=== PATIENT | male | born 1950 | race Caucasian/White ===

== ENCOUNTER 2019-08-27 12:01 | Outpatient (CLI) | payer MEDICARE, SELFPAY ==
--- NOTE | ~2019-08-27 | US_ITS ---
EXAMINATION: US soft tissue LE LT DATE: 08/27/2019 12:44 INDICATION: Left Greco's cyst. Left lower limb pain. TECHNIQUE: Multiple grayscale and Doppler ultrasound images of the left lower limb were obtained. COMPARISON: None FINDINGS: There is a 6.0 x 1.8 x 4.2 cm Greco's cyst in the left popliteal fossa. IMPRESSION: 1. Large left-sided Greco's cyst. Reviewed, dictated and finalized at location A. N SYSTEM OPERATOR
--- NOTE | ~2019-08-27 | US_ITS ---
EXAMINATION: US venous doppler [facility] DATE: 08/27/2019 12:45 INDICATION: Left lower limb pain. TECHNIQUE: Grayscale ultrasound images without and with compression and Doppler ultrasound images of the left lower extremity veins were obtained. COMPARISON: None. FINDINGS: The visualized portions of left common femoral vein, profunda (deep) femoral vein, femoral vein, popl iteal vein, peroneal veins, posterior tibial veins, and greater saphenous vein outflow are patent. IMPRESSION: 1. No deep venous thrombosis. Reviewed, dictated and finalized at location A. ENT FINANCE ADVISOR
== END 2019-08-27 12:02 | disposition home or self-care (01) ==
LOC: ANHIMG 12:09
PROVIDERS: PCP Internal Medicine; Visit Provider Internal Medicine
DX: M79.662 Pain in left lower leg (principal); M71.22 Synovial cyst of popliteal space [Baker], left knee
CPT/HCPCS: 76882; 93971

== ENCOUNTER 2019-10-20 16:14 | Emergency (ER) | payer MEDICARE, SELFPAY ==
--- NOTE | ~2019-10-20 | CT_ITS ---
EXAMINATION: CT abdomen pelvis w con EXAM DATE: 10/20/2019 17:50 INDICATION: Abdominal pain. TECHNIQUE: Spiral CT of the abdomen and pelvis was performed following intravenous injection of 100 m L Omnipaque 350. Axial, coronal and sagittal images were reviewed. The dose-length product (DLP) fo r this examination was 1044.98 mGy-cm. The exposure was tailored according to patient size (auto mA exposure control), and iterative reconstruction (ASIR) was used as additional dose reduction techniqu e. There is no prior study for comparison. FINDINGS: There is a hypodensity in the left liver lobe measuring 3.7 cm consistent with a cyst. The spleen, pancreas, and adrenal glands are unremarkable. There are gallstones within an otherwise unr emarkable gallbladder. No evidence of obstructive biliary disease. Portal and splenic veins are pat ent. There is a left renal cyst measuring 2.3 cm. Kidneys enhance symmetrically. There is no hydrone phrosis. There is mild prostatomegaly. The bladder is unremarkable. There is no retroperitoneal or pelvic lymphadenopathy. There is mild scattered arteriosclerotic disease. Small left inguinal fat- containing hernia. Congenitally short appendix, or surgical stump unremarkable. There is mild scattered colonic divertic ulosis. There is no adjacent inflammatory change to suggest diverticulitis. The stomach and small yang wel are unremarkable. There is expected amount of colonic stool. No free intraperitoneal gas. Th e heart is normal in size. There are no pericardial or pleural effusions. The lung bases are unrema rkable. There are no osteoblastic or osteolytic lesions identified. There is total right hip arthrop lasty. IMPRESSION: 1. No acute intra-abdominal findings. 2. Mild colonic diverticulosis. 3. Small left inguinal hernia. 4. Cholelithiasis. Reviewed, dictated and finalized at location A.
[2019-10-20 16:32] VITALS: BP 120/76; PULSE 69; RESP 12; TEMP 36.4; O2SAT 100
--- NOTE | 2019-10-20 16:38 | ECG_ITS ---
Measurements Intervals [place] Rate: 66 P: 55 ID: [id number] QRS: 1 QRSD: 90 T: 23 QT: 387 QTc: 406 Interpretive Statements SINUS RHYTHM BORDERLINE R WAVE PROGRESSION, ANTERIOR LEADS BASELINE ARTIFACT- II, III, V6 BORDERLINE ECG Electronically Signed On 10-20-2019 18:14:03 CDT by Shin Lino D.O.
--- NOTE | 2019-10-20 16:47 | ED.ABDPAIN ---
HPI - Abdominal Pain General Chief Complaint: Abdominal Pain Stated Complaint: ABD PAIN Time Seen by Provider: 10/20/19 16:21 Source: patient History of Present Illness HPI narrative: Pt c/o RUQ pain, started today, 01/30, now resolved. Pt states he's been eating food for the past few days that might have caused it. MD elicited complaint: abdominal pain Pain Consistency: now resolved Quality: dull Radiation: epigastric Migration to: no migration Exacerbating factors: nothing Relieving factors: nothing Related Data Home Medications Medication Instructions Recorded Confirmed atorvastatin 40 mg tablet 40 mg PO DAILY 04/23/19 lansoprazole 15 mg capsule,delayed 15 mg PO DAILY 04/23/19 release sildenafil (pulm.hypertension) 20 20 mg PO TID 04/23/19 mg tablet Allergies Allergy/AdvReac Type Severity Reaction Status Date / Time No Known Allergies Allergy Verified 10/20/19 17:14 Review of Systems Review of Systems: All systems reviewed & are unremarkable except as noted in HPI and below Constitutional: Constitutional: Denies body ache(s), Denies chills, Denies excessive sweating, Denies fatigue, Denies fever(s), Denies headache(s), Denies lethargy, Denies malaise, Denies weakness and Denies weight loss Eyes: Eyes: Denies blurry vision, Denies change in vision and Denies loss of vision ENT: Denies dizziness, Denies ear discharge, Denies headache(s), Denies lip swelling, Denies epistaxis, Denies nasal congestion, Denies neck pain, Denies throat swelling and Denies tongue swelling Cardiovascular: Cardiovascular: Denies chest pain, Denies chest pain at rest, Denies chest pain with activity, Denies diaphoresis, Denies rapid heart rate, Denies edema, Denies irregular heart rhythm, Denies lightheadedness, Denies palpitations, Denies dyspnea and Denies dyspnea on exertion Respiratory: Respiratory: Denies chest congestion, Denies cough, Denies hemoptysis, Denies dyspnea and Denies dyspnea on exertion Gastrointestinal: Gastrointestinal: Denies melena, Denies hematochezia, Denies diarrhea, Denies vomiting and Denies hematemesis Musculoskeletal: Musculoskeletal: Denies abnormal gait, Denies deformity, Denies joint swelling, Denies limited range of motion, Denies neck pain and Denies numbness Neurologic: Denies Abnormal speech present, Denies abnormal gait, Denies confusion, Denies dizziness, Denies headache(s), Denies focal weakness, Denies loss of vision, Denies numbness, Denies Other visual disturbances, Denies Sensory deficit (Neuro) and Denies weakness Psychiatric: Psychiatric: Denies confusion, Denies depression, Denies auditory hallucinations, Denies homicidal ideation and Denies suicidal ideation Endocrine: Endocrine: Denies cold intolerance, Denies excessive sweating, Denies fatigue, Denies heat intolerance and Denies palpitations Hematologic/Lymphatic: Hematologic/Lymphatic: Denies easy bleeding and Denies easy bruising Allergic/Immunologic: Allergic/Immunologic: Denies lip swelling, Denies throat swelling and Denies tongue swelling PMF Past Medical History Medical History (Updated 10/20/19 @ 19:26 by Sandeep Bower MD) Abnormal EKG Bakers cyst Chronic low back pain Colon cancer screening Erectile dysfunction GERD (gastroesophageal reflux disease) Hyperlipidemia Left leg pain Left leg swelling On alf drug therapy Prostate cancer screening Surgical History Surgical History (Updated 04/28/19 @ 08:21 by Irma Cerda [facility]) History of total hip replacement History of total right knee replacement (TKR) Hx of spinal surgery Social History Social History Smoking status: Never smoker Alcohol intake: never Gender identity (if verbalized by the patient): Male Exam Const: General: cooperative, healthy appearing, comfortable, no acute distress, well developed, alert and awake; No confusion Orientation/consciousness: oriented to person, oriented to place, oriented to time, patient orie
[2019-10-20 16:51] LABS: Basophils Absolute Auto 0.1 K/mm3 (0.0-0.1); Basophils Percent Auto 0.7 % (0.2-1.2); Eosinophils Absolute Auto 0.1 K/mm3 (0-0.3); Eosinophils Percent Auto 0.7 % (0-4.4); Hematocrit 46.3 % (42.0-52.0); Hemoglobin 15.2 g/dL (14.0-18.0); Immature Granulocyte Absolute 0.06 K/mm3 (0.00-0.031); Immature Granulocyte Percent A 0.4 % (0-0.5); Lymphocytes Percent Auto 14.1 % (18.3-44.2); Mean Corpuscular HGB Conc 32.8 g/dl (32-36); Mean Corpuscular Volume 91.3 fl (80-100); Mean Platelet Volume 10.9 fl (7.4-10.4); Monocytes Absolute Auto 1.3 K/mm3 (0.1-0.6); Monocytes Percent Auto 8.5 % (2.6-8.5); Neutrophils Absolute Auto 11.3 K/mm3 (1.3-6.7); Neutrophils Percent Auto 75.6 % (45.5-73.1); Platelet Count Result 209 k/mm3 (150-375); Red Blood Count 5.07 M/mm3 (4.6-6.20); Red Cell Distribution Width 13.4 % (11.5-14.5); White Blood Count 14.9 K/mm3 (4.5-10.0)
[2019-10-20 16:56] LABS: Partial Thromboplastin Time 23.9 SECONDS (22.3-36.8); Prothrombin Time 12.4 Seconds (11.1-14.7)
[2019-10-20] MEDS: LACTATED RINGERS 1,000 ML 999 ML IV CONT (17:01)
[2019-10-20 17:19] LABS: Alanine Aminotransferase 29 U/L (4-50); Albumin Level 4.5 g/dL (3.5-5.1); Alkaline Phosphatase 94 U/L (38-126); Aspartate Amino Transferase 54 U/L (17-59); Bilirubin,Total 1.1 mg/dL (0.2-1.3); Blood Urea Nitrogen 26 mg/dL (9-20); Calcium 9.2 mg/dL (8.4-10.2); Carbon Dioxide 25 mmol/L (22-30); Chloride 106 mmol/L (98-107); Estimated CRCL calculation 78 ml/min; Estimated Glomerular Filt Rate > 60; Glucose 87 mg/dL (75-110); Lipase 112 U/L (23-300); Potassium 3.4 mmol/L (3.4-5.0); Sodium 139 mmol/L (137-145)
[2019-10-20 17:29] LABS: Troponin I < 0.012 ng/mL (0.000-0.034)
[2019-10-20 19:46] VITALS: BP 122/78; PULSE 78; RESP 20; O2SAT 99
== END 2019-10-20 19:49 | disposition home or self-care (01) ==
PROVIDERS: Emergency Provider Emergency Medicine; PCP Internal Medicine
DX: K80.20 Calculus of gallbladder without cholecystitis without obstruction (principal); K21.9 Gastro-esophageal reflux disease without esophagitis; E78.5 Hyperlipidemia, unspecified; Z96.649 Presence of unspecified artificial hip joint; Z96.659 Presence of unspecified artificial knee joint; K57.90 Diverticulosis of intestine, part unspecified, without perforation or abscess without bleeding; K40.90 Unilateral inguinal hernia, without obstruction or gangrene, not specified as recurrent
CPT/HCPCS: 36415; 74177; 80053; 83690; 84484; 85025; 85610; 85730; 93005; 96360; 99284; J7120; Q9967

== ENCOUNTER 2020-12-22 06:46 | Outpatient (CLI) | payer MEDICARE, SELFPAY ==
[2020-12-22 07:30] LABS: Basophils Absolute Auto 0.1 K/mm3 (0.0-0.1); Basophils Percent Auto 0.7 % (0.2-1.2); Eosinophils Absolute Auto 0.2 K/mm3 (0-0.3); Eosinophils Percent Auto 2.5 % (0-4.4); Hematocrit 44.2 % (42.0-52.0); Hemoglobin 15.1 g/dL (14.0-18.0); Immature Granulocyte Absolute 0.02 K/mm3 (0.00-0.031); Immature Granulocyte Percent A 0.3 % (0-0.5); Lymphocytes Absolute Auto 0.93 K/mm3 (0.9-3.2); Lymphocytes Percent Auto 13.6 % (18.3-44.2); Mean Corpuscular HGB Conc 34.2 g/dl (32-36); Mean Corpuscular Volume 90.8 fl (80-100); Mean Platelet Volume 10.2 fl (7.4-10.4); Monocytes Absolute Auto 0.7 K/mm3 (0.1-0.6); Monocytes Percent Auto 9.6 % (2.6-8.5); Neutrophils Percent Auto 73.3 % (45.5-73.1); Platelet Count Result 187 k/mm3 (150-375); Red Blood Count 4.87 M/mm3 (4.6-6.20); Red Cell Distribution Width 12.7 % (11.5-14.5); White Blood Count 6.9 K/mm3 (4.5-10.0)
[2020-12-22 07:44] LABS: Alanine Aminotransferase 20 U/L (4-50); Albumin Level 4.2 g/dL (3.5-5.1); Alkaline Phosphatase 76 U/L (38-126); Anion Gap 8 mmol/L (8-16); Aspartate Amino Transferase 29 U/L (17-59); Bilirubin,Total 1.2 mg/dL (0.2-1.3); Blood Urea Nitrogen 15 mg/dL (9-20); Calcium 9.3 mg/dL (8.4-10.2); Carbon Dioxide 25 mmol/L (22-30); Chloride 107 mmol/L (98-107); Cholesterol 186 mg/dL (0-200); Estimated Glomerular Filt Rate > 60; Glucose 100 mg/dL (75-110); HDL Direct 50 mg/dL; Potassium 4.2 mmol/L (3.4-5.0); Sodium 140 mmol/L (137-145); Triglycerides 99 mg/dL (<150)
[2020-12-22 07:55] LABS: LDL Cholesterol Direct 102 mg/dL
[2020-12-22 08:53] LABS: Free T4 Free Thyroxine 0.81 ng/mL (0.78-2.19)
[2020-12-22 09:05] LABS: Hemoglobin A1C 5.5 % (<5.7)
[2020-12-22 09:24] LABS: Prostate Specific Antigen 1.6 ng/mL (< OR = 4.0)
== END 2020-12-22 06:47 | disposition home or self-care (01) ==
PROVIDERS: PCP Internal Medicine; Visit Provider Internal Medicine
DX: E78.2 Mixed hyperlipidemia (principal); Z79.899 Other long term (current) drug therapy; Z12.5 Encounter for screening for malignant neoplasm of prostate
CPT/HCPCS: 36415; 80053; 80061; 83036; 83090; 84153; 84439; 84443; 85025; G0103

== ENCOUNTER 2021-02-16 00:22 | Day surgery (SDC) | payer MEDICARE, SELFPAY ==
[2021-02-07 14:46] VITALS: BMI 27.5
[2021-02-16 06:27] VITALS: BP 147/82; PULSE 79; RESP 16; TEMP 36.1; O2SAT 98; BMI 27.3
[2021-02-16] MEDS: LACTATED RINGERS 1,000 ML 150 ML IV CONT (06:48)
--- NOTE | 2021-02-16 06:55 | PM.HPGS ---
History of Present Illness History of Present Illness Consent: Risks, benefits, and alternatives have been discussed and questions answered. Patient agrees to proceed with procedure. Chief complaint: hx of colon polyps, family hx of colon ca Narrative: Felice Parish is a 70 year old male Here for colon cancer screening. She has family history of colon cancer in his mother and he herself had 4 polyps removed about 3 years ago. Review of Systems Review of Systems: All systems reviewed & are unremarkable except as noted in HPI and below PMFSH Past Medical History Medical History Abnormal EKG Anxiety Bakers cyst BMI 28.0-28.9,adult Chronic low back pain Colon cancer screening Erectile dysfunction Family history of colon cancer GERD (gastroesophageal reflux disease) History of colon polyps Hyperlipidemia Left leg pain Left leg swelling On penitentiary drug therapy Personal history of COVID-19 Prostate cancer screening RUQ abdominal pain Vitamin D deficiency Surgical History Surgical History History of total hip replacement History of total right knee replacement (TKR) Hx of spinal surgery Family History Family History Father Family history of premature coronary heart disease Mother Carcinoma of colon Social History Social History Smoking status: Never smoker Alcohol intake: current Drinks per week: 2 Substance use: never Living arrangements: with family Gender identity (if verbalized by the patient): Male Spiritual care concerns: No Meds Home Medications and Allergies Home Medications Medication Instructions Recorded Confirmed Type lansoprazole 15 mg capsule,delayed 15 mg PO DAILY 04/23/19 02/16/21 History release alprazolam 1 mg tablet 1 mg PO TID PRN #60 tablet 11/24/20 02/16/21 Rx atorvastatin 80 mg tablet 80 mg PO DAILY #90 tablet 12/29/20 02/16/21 Rx naproxen sodium [Aleve] 220 mg PO DAILY PRN 02/07/21 02/16/21 History sildenafil (pulm.hypertension) 20 mg PO DAILY PRN 02/07/21 02/16/21 History Allergies Allergy/AdvReac Type Severity Reaction Status Date / Time No Known Allergies Allergy Verified 02/07/21 14:44 Vital Signs Vital Signs - 24 hr 02/16/21 06:27 Temperature 36.1 C L Pulse Rate 79 Respiratory Rate 16 Blood Pressure 147/82 H Pulse Oximetry 98 Exam Resp: Auscultation: clear to auscultation bilaterally Cardio: Rate: regular rate Rhythm: regular rhythm GI: GI Palp: Yes Soft to palpation and No Tenderness to palpation present (GI) Assessment and Plan Assessment and plan (1) Family history of colon cancer: Code(s): Z80.0 - Family history of malignant neoplasm of digestive organs Status: Acute Assessment and Plan: Colonoscopy with possible biopsy or polypectomy or cautery or injection of substances.
--- NOTE | 2021-02-16 07:13 | WPDANESEPPF ---
Anes - Initial Pre Proc Eval Procedure: Operation Date: 02/16/21 07:30 Proposed Procedures p Screening Colonoscopy - Anthony White MD Date/Time: 02/16/21 07:13 Surgeon: Anthony White MD Pre Op Diagnosis: hx of colon polyps, family hx of colon ca Patient Data Age: 70 Gender: M Height: 1.91 m Weight: 99 kg Last Vital Signs Temp 96.9 F L 02/16/21 06:27 Pulse 79 02/16/21 06:27 Resp 16 02/16/21 06:27 BP 147/82 H 02/16/21 06:27 Pulse Ox 98 02/16/21 06:27 Allergies Allergy/AdvReac Type Severity Reaction Status Date / Time No Known Allergies Allergy Verified 02/07/21 14:44 Home Medications Medication Instructions Recorded Confirmed Type lansoprazole 15 mg capsule,delayed 15 mg PO DAILY 04/23/19 02/16/21 History release alprazolam 1 mg tablet 1 mg PO TID PRN #60 tablet 11/24/20 02/16/21 Rx atorvastatin 80 mg tablet 80 mg PO DAILY #90 tablet 12/29/20 02/16/21 Rx naproxen sodium [Aleve] 220 mg PO DAILY PRN 02/07/21 02/16/21 History sildenafil (pulm.hypertension) 20 mg PO DAILY PRN 02/07/21 02/16/21 History Patient hx anesthesia problems: none Family hx anesthesia problems: none PMFSH Past Medical History Medical History Abnormal EKG Anxiety Bakers cyst BMI 28.0-28.9,adult Chronic low back pain Colon cancer screening Erectile dysfunction Family history of colon cancer GERD (gastroesophageal reflux disease) History of colon polyps Hyperlipidemia Left leg pain Left leg swelling On alf drug therapy Personal history of COVID-19 Prostate cancer screening RUQ abdominal pain Vitamin D deficiency Surgical History Surgical History History of total hip replacement History of total right knee replacement (TKR) Hx of spinal surgery Family History Family History Father Family history of premature coronary heart disease Mother Carcinoma of colon Social History Social History Smoking status: Never smoker Alcohol intake: current Drinks per week: 2 Substance use: never Living arrangements: with family Gender identity (if verbalized by the patient): Male Spiritual care concerns: No Anes - Eval Final PreProcedure Day of Procedure 02/16/21 07:13 Patient weight: overweight Lungs: clear to auscultation Airway: Mallampati scale class III Neurological: alert and oriented Last oral intake: >/= 8 hours ASA classification: II Emergent: no Anesthetic plan: proceed Anesthesia type and monitoring: general GIVS and standard monitoring Informed Consent: The patient's anesthetic plan and its attendant risks and benefits were discussed with the patient/family/POA. Questions were solicited and answers provided to the satisfaction of the patient/family/POA.
[2021-02-16 07:43] VITALS: BP 99/63; PULSE 81; RESP 20; O2SAT 95
[2021-02-16 07:53] VITALS: BP 116/61; PULSE 67; RESP 18; O2SAT 98
[2021-02-16 08:03] VITALS: BP 132/80; PULSE 64; RESP 21; O2SAT 98
== END 2021-02-16 08:20 | disposition home or self-care (01) ==
PROVIDERS: PCP Internal Medicine; Visit Provider Internal Medicine Gastroenterology
PROC: 0DJD8ZZ Inspection of Lower Intestinal Tract, Via Natural or Artificial Opening Endoscopic (ICD-10-PCS; CPT 45378; principal; 2021-02-16 07:30)
DX: Z12.11 Encounter for screening for malignant neoplasm of colon (principal); K57.30 Diverticulosis of large intestine without perforation or abscess without bleeding; F41.9 Anxiety disorder, unspecified; K21.9 Gastro-esophageal reflux disease without esophagitis; E78.5 Hyperlipidemia, unspecified; E55.9 Vitamin D deficiency, unspecified; Z86.16 Personal history of COVID-19; Z87.898 Personal history of other specified conditions
CPT/HCPCS: 45378; J2704; J7120

== ENCOUNTER 2021-10-24 16:38 | Outpatient (CLI) | payer MEDICARE, SELFPAY ==
[2021-10-24 16:58] LABS: Basophils Absolute Auto 0.1 K/mm3 (0.0-0.1); Basophils Percent Auto 0.8 % (0.2-1.2); Eosinophils Absolute Auto 0.3 K/mm3 (0-0.3); Eosinophils Percent Auto 3.4 % (0-4.4); Hematocrit 45.5 % (42.0-52.0); Hemoglobin 14.9 g/dL (14.0-18.0); Immature Granulocyte Absolute 0.02 K/mm3 (0.00-0.031); Immature Granulocyte Percent A 0.3 % (0-0.5); Lymphocytes Absolute Auto 1.37 K/mm3 (0.9-3.2); Lymphocytes Percent Auto 17.5 % (18.3-44.2); Mean Corpuscular HGB Conc 32.7 g/dl (32-36); Mean Corpuscular Hemoglobin 31.2 pg (26-34); Mean Corpuscular Volume 95.2 fl (80-100); Mean Platelet Volume 10.1 fl (7.4-10.4); Monocytes Absolute Auto 0.8 K/mm3 (0.1-0.6); Monocytes Percent Auto 10.3 % (2.6-8.5); Neutrophils Absolute Auto 5.3 K/mm3 (1.3-6.7); Neutrophils Percent Auto 67.7 % (45.5-73.1); Platelet Count Result 204 k/mm3 (150-375); Red Blood Count 4.78 M/mm3 (4.6-6.20); Red Cell Distribution Width 13.1 % (11.5-14.5); White Blood Count 7.8 K/mm3 (4.5-10.0)
[2021-10-24 17:10] LABS: Alanine Aminotransferase 25 U/L (4-50); Albumin Level 4.1 g/dL (3.5-5.1); Alkaline Phosphatase 88 U/L (38-126); Anion Gap 6 mmol/L (8-16); Aspartate Amino Transferase 32 U/L (17-59); Bilirubin,Total 0.7 mg/dL (0.2-1.3); Blood Urea Nitrogen 21 mg/dL (9-20); Calcium 9.1 mg/dL (8.4-10.2); Carbon Dioxide 27 mmol/L (22-30); Chloride 107 mmol/L (98-107); Cholesterol 187 mg/dL (0-200); Estimated Glomerular Filt Rate > 60; Glucose 98 mg/dL (65-110); HDL Direct 45 mg/dL; Potassium 3.9 mmol/L (3.4-5.0); Sodium 140 mmol/L (137-145); Triglycerides 231 mg/dL (<150)
[2021-10-24 17:16] LABS: Hemoglobin A1C 5.3 % (<5.7)
[2021-10-24 17:21] LABS: LDL Cholesterol Direct 99 mg/dL
[2021-10-24 18:15] LABS: Free T4 Free Thyroxine 0.89 ng/mL (0.78-2.19); Vitamin D 25 Hydroxy 36.8 ng/mL
== END 2021-10-24 16:39 | disposition home or self-care (01) ==
PROVIDERS: PCP Internal Medicine; Visit Provider Internal Medicine
DX: E78.2 Mixed hyperlipidemia (principal); Z79.899 Other long term (current) drug therapy; E55.9 Vitamin D deficiency, unspecified; K21.9 Gastro-esophageal reflux disease without esophagitis; Z96.649 Presence of unspecified artificial hip joint
CPT/HCPCS: 36415; 80053; 80061; 82248; 82306; 83036; 84439; 84443; 85025

== ENCOUNTER 2023-10-10 07:03 | Outpatient (CLI) | payer MEDICARE, SELFPAY ==
[2023-10-10 07:33] LABS: Basophils Absolute Auto 0.1 K/mm3 (0.0-0.1); Basophils Percent Auto 0.6 % (0.2-1.2); Eosinophils Absolute Auto 0.2 K/mm3 (0-0.3); Hematocrit 46.3 % (42.0-52.0); Hemoglobin 15.1 g/dL (14.0-18.0); Immature Granulocyte Absolute 0.04 K/mm3 (0.00-0.031); Immature Granulocyte Percent A 0.4 % (0-0.5); Lymphocytes Absolute Auto 1.16 K/mm3 (0.9-3.2); Lymphocytes Percent Auto 12.2 % (18.3-44.2); Mean Corpuscular HGB Conc 32.6 g/dl (32-36); Mean Corpuscular Hemoglobin 30.9 pg (26-34); Mean Corpuscular Volume 94.9 fl (80-100); Mean Platelet Volume 10.7 fl (7.4-10.4); Monocytes Absolute Auto 0.8 K/mm3 (0.1-0.6); Monocytes Percent Auto 8.5 % (2.6-8.5); Neutrophils Absolute Auto 7.3 K/mm3 (1.3-6.7); Neutrophils Percent Auto 76.3 % (45.5-73.1); Platelet Count Result 203 k/mm3 (150-375); Red Blood Count 4.88 M/mm3 (4.6-6.20); Red Cell Distribution Width 13.2 % (11.5-14.5); White Blood Count 9.5 K/mm3 (4.5-10.0)
[2023-10-10 07:44] LABS: Appearance Urine Clear (Clear); Bacteria Urine None Seen /hpf; Bilirubin Urine Negative (Negative); Blood Urine Negative (Negative); Color Urine Yellow (Yellow); Glucose Urine UA Negative (Negative); Ketones Urine Trace mg/dL (Negative); Leukocyte Esterase Ur 1+ LEU/UL (Negative); Nitrate Urine Negative (Negative); Non Pathogenic Casts 0-2; Protein Urine Negative (Negative); RBC Urine 0-2 /hpf (0-2); Specific Grav Ur 1.026 (1.001-1.035); Squamous Epithelial Cell Urine None Seen /hpf (Few); WBC Urine 21-50 /hpf (0-3)
[2023-10-10 07:44] LABS: Alanine Aminotransferase 32 U/L (6-50); Albumin Level 4.4 g/dL (3.5-5.1); Alkaline Phosphatase 101 U/L (38-126); Anion Gap 6 mmol/L (4-12); Aspartate Amino Transferase 30 U/L (17-59); Bilirubin,Total 1.1 mg/dL (0.2-1.3); Blood Urea Nitrogen 28 mg/dL (9-20); Calcium 9.4 mg/dL (8.4-10.2); Carbon Dioxide 26 mmol/L (22-30); Chloride 109 mmol/L (98-107); Cholesterol 199 mg/dL (0-200); Estimated Glomerular Filt Rate > 60; Glucose 116 mg/dL (65-110); HDL Direct 45 mg/dL; Hemoglobin A1C 5.5 % (<5.7); Potassium 4.3 mmol/L (3.4-5.0); Sodium 141 mmol/L (137-145); Triglycerides 210 mg/dL (<150)
[2023-10-10 07:54] LABS: LDL Cholesterol Direct 115 mg/dL
[2023-10-10 08:07] LABS: Free T4 Free Thyroxine 0.97 ng/mL (0.78-2.19); Vitamin D 25 Hydroxy 13.9 ng/mL
[2023-10-10 08:10] LABS: Add Urine Microscopic? YES
== END 2023-10-10 07:04 | disposition home or self-care (01) ==
LOC: ANHLAB 07:05
PROVIDERS: PCP Internal Medicine; Visit Provider Internal Medicine
DX: N52.9 Male erectile dysfunction, unspecified (principal); F41.9 Anxiety disorder, unspecified; Z79.899 Other long term (current) drug therapy; Z96.651 Presence of right artificial knee joint
CPT/HCPCS: 36415; 80053; 80061; 81001; 82306; 83036; 84439; 84443; 85025

== ENCOUNTER 2024-09-17 08:26 | Outpatient (CLI) | payer MEDICARE, SELFPAY ==
--- OUTSIDE RECORDS SUMMARY | 2024-09-17 08:41 | XMS_ITS | Referral Summary ---
Author Organization [facility] Address [address] [place] [id number] Care Team Providers Care Neurological Surgeon Name Role Phone Fred Hernandez MD Primary Care Provider [phone]- [phone] Encounters Date Type Department Care Team Description 09/08/2024 Results Follow-Up [facility] Dermatology [address] [place] [address] [address] [place] [address] Helga Ernst MD 09/03/2024 Orders Only [facility] [address] [place] [address] Helga Ernst MD Neoplasm of uncertain behavior of skin 09/03/2024 7:15 AM CDT Procedure visit [facility] [address] [facility] [address] [place] [address] Helga Ernst MD Neoplasm of uncertain behavior of skin (Primary Dx); BCC (basal cell carcinoma), face from Last 3 Months Allergies No known active allergies Medications ALPRAZolam (XANAX) 1 mg tablet Take by mouth 3 (three) times a day as needed 1 Active atorvastatin (LIPITOR) 80 mg tablet Take 80 mg by mouth daily 1 Active rosuvastatin (CRESTOR) 20 mg tablet rosuvastatin 20 mg tablet Active sildenafiL, pulm.hypertensi on, (REVATIO) 20 mg tablet Take 20 mg by mouth daily as needed 1 Active Active Problems Problem Noted Date Diagnosed Date 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 History of nonmelanoma skin cancer 01/01/2017 History of malignant melanoma 01/01/2017 Basal cell carcinoma (BCC) of face 09/30/2016 Social History Tobacco Use Types Packs/Day Years Used Date Smoking Tobacco: Never Smokeless Tobacco: Never Tobacco Cessation:Counseling Given: Not Answered Sex and Gender Information Value Date Recorded Sex Assigned at Not on file 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 Gender Identity Not on file Sexual Orientation Not on file Last Filed Vital Signs Vital Sign Reading Time Taken Comments Blood Pressure 141/90 09/03/2024 7:20 AM CDT Pulse 90 09/03/2024 7:20 AM CDT Temperature - - Respiratory Rate - - Oxygen Saturation 97% 09/03/2024 7:20 AM CDT Inhaled Oxygen Concentration - - Weight - - Height - - Body Mass Index - - Plan of Treatment Not on file Procedures Procedure Name Priority Date/Time Associated Diagnosis Comments SURGICAL PATHOLOGY Routine 09/03/2024 12 :00 AM CDT Neoplasm of uncertain behavior of skin from Last 3 Months Results * Surgical pathology (09/03/2024 12:00 AM CDT) Tissue (Skin, excision) 09/03/2024 09/03/2024 1:42 PM CDT [facility] - 09/08/2024 12:59 PM CDT EPIC results best viewed via link to PDF [facility] [address] [place] [address], [address], [place] [address] [email or web address] Note to Patients: This report may contain a detailed description of human tissue sent by a health care provider to the laboratory for pathologic evaluation. The content of this report is essential for diagnosis and may provide important critical findings. This information may be unfamiliar to patients to review without a medical professional present. It is advised that the patient review this report in the presence of a health care provider who can answer questions and explain the details. FINAL REPORT Patient Information: PATIENT NAME: FELICE PARISH DDS SEX: M : 1950 (Age: 74) Specimen Information: COLLECTED: 09/03/2024 RECEIVED: 09/03/2024 REPORTED: 09/08/2024 Submitting Physician Information: Liang Ernst M.D. Dermatology ([facility]), [address] [facility], [address] [place] [address], DERMATOPATHOLOGY REPORT RESULTS DIAGNOSIS: SKIN, RIGHT PROXIMAL FOREARM, EXCISION: - RESIDUAL ATYPICAL INTRAEPIDERMAL MELANOCYTIC PROLIFERATION - SCAR FROM A PREVIOUS PROCEDURE Note: The lesion extends to within a fraction of a millimeter of one lateral margin of the sections examined. The prior biopsy specimen ([id number]) that was processed and diagnosed at an outside laboratory may be reviewed at the request of the clinician. A MART-1 immunohistochemical stain was performed to assess the distribution of melanocytes in the lesion and confirms the histologic impression. ag/lac By this signature, I attest that the above diagnosis is based upon my personal examination of the slides(and/or other material indicated in the diagnosis). Idania Ley M.D. Report Electronically Reviewed and Signed Out By Idania Ley M.D. 09/08/2024 12:59:25 CLINICAL INFORMATION R/O MM SPECIMEN DATA MICROSCOPIC DESCRIPTION: There is a proliferation of atypical melanocytes arranged as single cells and nests within the epidermis at the dermo-epidermal junction adjacent to scar. (D48.5, L90.5) GROSS DESCRIPTION: Received in a formalin-containing bottle is an elliptical piece of pale hoang, finely scaling, hair-bearing skin and adipose tissue measuring 2.0 by 1.2 by 0.4 cm. An orienting notch is present and the suture is placed in the 12:00 position. The 12:00-6:00 surgical margin is inked black. The 6:00-12:00 surgical margin is inked blue. The specimen bears a centrally located, pink-hoang, scaly area measuring 0.9 by 0.9cm. The specimen is sectioned into 6 pieces and submitted in 4 cassettes. The tip with the notch is submitted in the first cassette. The opposite tip is submitted in the second cassette. The tips are tagged orange for orienting purposes. Due to shrinkage, measurements may be different than those at time of procedure. exr/mxf ICD-9 A; ZSD.1387 ZSD.135 Clerical Data A; 78414, [address]2447-WM The characteristics of special, immunohistochemical, and immunofluorescence stains and in-situ hybridization tests performed by the [facility] were deemed acceptable in ongoing quality measurement specialist measures and in compliance with regulations drawn from the Clinical Laboratory Improvement Act [id number] (CLIA '88). Control reactions for all stains performed were deemed adequate and appropriate by a pathologist prior to evaluation of patient tissue. Some diagnoses were rendered with the assistance of laboratory-developed tests utilizing analyte-specific reagents; the performance characteristic of these tests were determined by [facility] and are not cleared or approved by the [place] Food an Drug administration. Laboratory developed test may only be performed in a facility that is certified by the [facility] as a high-complexity laboratory under CLIA '88. These tests are used for clinical purposes and are not investigational. Helga Ernst MD LAB PATHOLOGY ORDERABLE S Final Result [facility] [address] [place] [address] from Last 3 Months Insurance MEDICARE [facility] MEDICARE SUPPLEMENT Care Teams Neurological Surgeon Relationship Specialty Start Date End Date Fred Hernandez MD [address] [place] [address] PCP - General 10/09/16
--- OUTSIDE RECORDS SUMMARY | 2024-09-17 08:41 | XMS_ITS | Encounter Summary ---
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 Name Role Phone Fred Hernandez MD Primary Care Provider [phone]- [phone] Encounter Details Date Type Department Care Team (Late st Contact Info) Description 09/08/2024 Results Follow-Up [facility] Dermatology [address] [place] [address] [address] [place] [id number] [place], Helga Aguillon MD [address] [place] [address] [address] [place] [address] Social History Tobacco Use Types Packs/Day Years Used Date Smoking Tobacco: Never Smokeless Tobacco: Never Sex and Gender Information Value Date Recorded Sex Assigned at Not on file 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
--- OUTSIDE RECORDS SUMMARY | 2024-09-17 08:41 | XMS_ITS | Clinical Summary ---
Author Organization [facility] Address [address] [place] [address] Care Team Providers Care Trucking Manager Name Role Phone Junaid Brennan MD Unavailable [phone] Vincenzo Gomez MD Primary Care Provider [phone] Ry COY MD, Frank Unavailable [phone] Source Comments [facility],non-owned Affiliates and Associated Physician Practices is amultiple site organization consisting of ambulatory clinics and hospital sitesin [place], [place] and [place]. This disclosure is being madepursuant to the Care Everywhere program and may not contain all information available regarding this patient. Last updated 18.[facility] Allergies No known active allergies Medications * Be aware that medications may not be up to date on this document. Alwaysverify current medications with the patient. Medication Sig Dispensed Refills Start Date End Date Status ALPRAZolam (XANAX) 1 MG tablet Take 1 Tab by mouth 3 times daily as needed For Anxiety 5 04/26/2016 Active atorvastatin (LIPITOR) 40 MG tablet once daily 0 2018 Active lansoprazole (PREVACID) 30 MG capsule Take 30 mg by mouth daily before breakfast Active HYDROcodone-acetam inophen (NORCO) 10-325 MG tablet Take 0.5-1 tablets by mouth every 6 hours as needed 28 tablet 05/18/2019 Active Additional Information Patient not taking.Reported on 07/02/2019 celecoxib (CELEBREX) 200 MG capsule Take 1 capsule by mouth 2 times daily 60 capsule 05/19/2019 Active Additional Information Patient not taking.Reported on 07/02/2019 sildenafil (REVATIO) 20 MG tablet Take 20 mg by mouth once daily 10/09/2018 Active Active Problems Problem Noted Date Diagnosed Date Arthritis of knee 05/17/2019 Resolved Problems Problem Noted Date Diagnosed Date Resolved Date Primary osteoarthritis of right hip 10/20/2018 10/21/2018 Primary osteoarthritis of left knee 09/18/2018 10/21/2018 Right hip pain 09/04/2018 10/21/2018 Primary osteoarthritis of both knees 05/10/2016 10/21/2018 Immunizations Name Administration Dates Next Due INFLUENZA VACCINE 03/22/2016 Social History Tobacco Use Types Packs/Day Years Used Date Smoking Tobacco: Never Smokeless Tobacco: Never Alcohol Use Standard Drinks/Week Comments Yes 0 (1 standard drink = 0.6 oz pur e alcohol) SOCIAL Sex and Gender Information Value Date Recorded Sex Assigned at Not on file Gender Identity Not on file Sexual Orientation Not on file Last Filed Vital Signs Vital Sign Reading Time Taken Comments Blood Pressure 122/75 05/19/2019 8:20 AM EPIC WILLOW SPECIALIST Pulse 87 05/19/2019 8:20 AM EPIC WILLOW SPECIALIST Temperature 36.4 C (97.5 F) 05/19/2019 8:20 AM EPIC WILLOW SPECIALIST Respiratory Rate 16 05/19/2019 8:20 AM EPIC WILLOW SPECIALIST Oxygen Saturation 95% 05/19/2019 8:20 AM EPIC WILLOW SPECIALIST Inhaled Oxygen Concentration - - Weight 101.8 kg (224 lb 6.4 oz) 05/17/2019 8:46 AM EPIC WILLOW SPECIALIST Height 190.5 cm (6' 3 ) 05/17/2019 8:46 AM EPIC WILLOW SPECIALIST Body Mass Index 28.05 05/17/2019 8:46 AM EPIC WILLOW SPECIALIST Plan of Treatment Health Maintenance Due Date Last Done Comments COLOGUARD (AGES 45-75) - COL ON CA SCREENING 1949 COLON MONITORING 1949 COLONOSCOPY - COLON CA SCREENING 1949 CT COLONOGRAPHY - COLON CA SCREENING 1950 Colorectal Cancer Screening 1949 FIT - COLON CA SCREENING 1949 FLEX SIG - COLON CA SCREENING 1949 MEDICARE AWV 12 MONTHS 1949 HEPATITIS C SCREENING 06/05/1967 DTAP/TDAP/TD VACCINES (1 - Tdap) 1968 PNEUMOCOCCAL VACCINE 50+ (1 of 1 - PCV) 1999 ZOSTER VACCINE (1 of 2) 1999 SCREENING FOR DIABETES 04/16/2022 9, 09/11/2018, 05/24/2016 COVID-19 VACCINE (1 - 2023-2 5 season) 2024 INFLUENZA VACCINE (#1) 2024 03/22/2016 Respiratory Syncytial Virus (RSV) Vaccine Pt: or over 60 yrs (1 - 1-dose 75+ series) 2024 DEPRESSION SCREENING 06/23/2024 HEPATITIS B VACCINE Aged Out No longe r eligible based on patient's age to complete this topic HIB VACCINE Aged Out No longer eligi ble based on patient's age to complete this topic HPV VACCINE Aged Out No longer eligi ble based on patient's age to complete this topic MENINGOCOCCAL (Group B) VACCINE SHARED DECISION-MAKING Aged Out No longer eligible based on patient's age to complete this topic MENINGOCOCCAL GROUPS A/C/Y/W VACCINE Aged Out No longer eligible b ased on patient's age to complete this topic Medical Devices Implanted Type Area Mail List Librarian Device Identifier Shelf Expiration Date Model / Serial / Lot Cmnt Bone Co Hv 40gm Implanted:Qty: 1 on 06/21/2016 by Junaid Brennan MD at [facility] Right: Knee [employer] 10/20/2017 [id number] / / [id number] Tray Tib 79mm Kn Cocr I Beam Implanted:Qty: 1 on 06/21/2016 by Junaid Brennan MD at [facility] Right: Knee [employer] 05/14/2026 [id number] / / [id number] Cmpnt Fem Kn Rt Cr Cmnt Prm Vngrd Intlk Implanted:Qty: 1 on 06/21/2016 by Junaid Brennan MD at [facility] Right: Knee [employer] 04/29/2026 [id number] / / [id number] Cmpnt Ptlr 31mm 1 Pg Wire Ascnt Arcm Kn Implanted:Qty: 1 on 06/21/2016 by Junaid Brennan MD at [facility] Right: Knee [employer] 05/23/2021 [id number] / / [id number] Brng 33lye60va Vngrd Arcm Kn Ant Stab Implanted:Qty: 1 on 06/21/2016 by Junaid Brennan MD at [facility] Right: Knee [employer] 06/21/2017 [id number] / / [id number] Acetabular Shell Implanted:Qty: 1 on 10/20/2018 by Michael Raza IV, MD at [facility] Right: Hip 04/24/2027 [id number] / / [id number] Acetabular Liner Implanted:Qty: 1 on 10/20/2018 by Michael Raza IV, MD at [facility] Right: Hip 07/15/2023 [id number] / / [id number] Femoral Stem 15mm Implanted:Qty: 1 on 10/20/2018 by Michael Raza IV, MD at [facility] Right: Hip 02/03/2028 [id number] / / [id number] Femoral Head +9 Implanted:Qty: 1 on 10/20/2018 by Michael Raza IV, MD at [facility] Right: Hip 06/11/2028 [id number] / / [id number] Cmnt Bone Djo Srg Cblt 40gm Hvisc Strl Implanted:Qty: 1 on 05/17/2019 by Junaid Brennan MD at [facility] Left: Knee [employer] 08/13/2020 600-15-000 / / [id number] Cmnt Bone Djo Srg Cblt 40gm Hvisc Strl Implanted:Qty: 1 on 05/17/2019 by Junaid Brennan MD at [facility] Left: Knee [employer] 08/13/2020 600-15-000 / / [id number] Tray Tib 83mm Kn Cocr I Beam Implanted:Qty: 1 on 05/17/2019 by Junaid Brennan MD at [facility] Left: Knee [employer] 04/21/2029 [id number] / / [id number] Cmpnt Ptlr 31mm 1 Pg Wire Ascnt Arcm Kn Implanted:Qty: 1 on 05/17/2019 by Junaid Brennan MD at [facility] Left: Knee [employer] 09/25/2022 [id number] / / [id number] Cmpnt Fem Kn Lt Cr Cmnt Prm Vngrd Intlk Implanted:Qty: 1 on 05/17/2019 by Junaid Brennan MD at [facility] Left: Knee [employer] 02/09/2029 [id number] / / [id number] Brng 31xat41bv Vngrd Arcm Kn Ant Stab Implanted:Qty: 1 on 05/17/2019 by Junaid Brennan MD at [facility] Left: Knee [employer] 09/17/2023 [id number] / / [id number] Explanted Type Area Mail List Librarian Device Identifier Shelf Expiration Date Model / Serial / Lot Pin Fx 22.9cm 4mm Stnm Thrd Ss 1 End Explanted:Qty: 1 on 10/20/2018 at [facility] [employer] [id number] / / Procedures Procedure Name Priority Date/Time Associated Diagnosis Comments COMPREHENSIVE METABOLIC PANEL Routine 04/16/2019 12:56 PM CDT Preoperative examination from Last 3 Months or Most Recently Relevant to Health Maintenance Results * (ABNORMAL) COMPREHENSIVE METABOLIC PANEL (04/16/2019 12:56 PM CDT) Glucose 94 70 - 105 mg/dL 04/16/2019 1:23 PM CDT [facility] Sodium 142 136 - 145 mmol/L 04/16/2019 1:23 PM CDT [facility] Potassium 4.3 3.5 - 4.7 mmol/L 04/16/2019 1:23 PM CDT [facility] Chloride 107 98 - 107 mmol/L 04/16/2019 1:23 PM CDT [facility] CO2 28 23 - 31 mmol/L 04/16/2019 1:23 PM CDT [facility] Calcium 9.5 8.4 - 10.4 mg/dL 04/16/2019 1:23 PM CDT [facility] Anion Gap 7(L) 8 - 16 mmol/L 04/16/2019 1:23 PM CDT [facility] BUN 19 8.4 - 25.7 mg/dL 04/16/2019 1:23 PM CDT [facility] Creatinine 0.93 0.72 - 1.25 mg/dL 04/16/2019 1:23 PM CDT [facility] Alkaline Phosphatase 85 40 - 150 U/L 04/16/2019 1:23 PM CDT [facility] ALT 18 0 - 61 U/L 04/16/2019 1:23 PM CDT [facility] AST 21 5 - 34 U/L 04/16/2019 1:23 PM CDT [facility] Protein Total 6.9 6.4 - 8.3 gm/dL 04/16/2019 1:23 PM CDT [facility] Albumin 4.4 3.2 - 4.6 gm/dL 04/16/2019 1:23 PM CDT [facility] Bilirubin Total 1.0 0.2 - 1.2 mg/dL 04/16/2019 1:23 PM CDT [facility] eGFR by MDRD >60 >60 mL/min/1.7 3m2 04/16/2019 1:23 PM CDT [facility] eGFR by MDRD >60 >60 mL/min/1.7 3m2 04/16/2019 1:23 PM CDT [facility] Blood BLOOD SPECIMEN / Unknown Venipuncture / Unknown 04/16/2019 12:56 PM CDT 04/16/2019 1:05 PM CDT Diana Hall FUNERAL ARRANGEMENT DIRECTOR-FLAT SHEET MAKER LAB - CHEM ISTRY ORDERABLES [facility] [address] [place] [address] from Last 3 Months or Most Recently Relevant to Health Maintenance Advance Directives * Full Code (Latest Code Status on File) Date Activated Date Inactivated Comments 05/17/2019 1:32 PM 05/19/2019 4:44 PM * Full Code Date Activated Date Inactivated Comments 10/20/2018 10:48 AM 10/21/2018 3:51 PM * Full Code Date Activated Date Inactivated Comments 06/21/2016 1:38 PM 06/24/2016 1:17 PM Care Teams Trucking Manager Relationship Specialty [place] [address] [place], [place] [id number] PCP - General Internal Medicine 05/24/16 [place] [address] [place] [id number] Orthopedic Surgery 07/24/12 [place] [address] [address] [place] [address] Orthopedic Surgery 09/04/18
--- OUTSIDE RECORDS SUMMARY | 2024-09-17 08:41 | XMS_ITS | Clinical Summary ---
Author Organization [facility] Address [address] [place] [address] Care Team Providers Care Chlorine Cells Operator Name Role Phone Fred Hernandez MD Primary Care Provider [phone] Allergies No known active allergies Medications ALPRAZolam [...] Basal cell carcinoma (BCC) of face 09/30/2016 Encounters Date Type Department Care Team Description 09/08/2024 Results Follow-Up [facility] [address] [place] [address] Helga Ernst MD 09/03/2024 7:15 AM CDT Procedure visit [facility] [address] [place] [address] Helga Ersnt MD Neoplasm of uncertain behavior of skin (Primary Dx); BCC (basal cell carcinoma), face 09/03/2024 Orders Only [facility] [address] [place] [address] Helga Ernst MD Neoplasm of uncertain behavior of skin from Last 3 Months Medical History Medical History Date Comments Neoplasm of unspecified beha vior of bone, soft tissue, and skin Neoplasm of skin - (Added by TW Conv) Encounter for procedure for purposes other than remedying health state, unspecified Elective surgery - (Added by TW Conv) 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, right - (Added by TW Conv) Social History Tobacco Use Types Packs/Day Years Used Date Smoking Tobacco: Never Smokeless Tobacco: Never Tobacco Cessation:Counseling Given: Not Answered Sex and Gender Information Value Date Recorded Sex Assigned at Not on file Legal Sex Male 7:23 PM WEALTH MANAGEMENT MANAGER Gender Identity Not on file Sexual Orientation Not on file Obstetrics History Last Filed Vital Signs Vital Sign Reading Time Taken Comments Blood Pressure 141/90 09/03/2024 7:20 AM CDT Pulse 90 09/03/2024 7:20 AM CDT Temperature - - Respiratory Rate - - Oxygen Saturation 97% 09/03/2024 7:20 AM CDT Inhaled Oxygen Concentration - - Weight - - Height - - Body Mass Index - - Plan of Treatment Health Maintenance Due Date Last Done Comments Colon Cancer Screening-Colonoscopy 1949 Depression Screening 1949 Fall Risk Assessment 1950 Hepatitis C Screening 1949 Hepatitis B Screening 1967 Pneumococcal vaccine 65+ (1 of 1 - PCV) 1999 Zoster Vaccine (1 of 2) 1999 Abdominal Aortic Aneurysm (A AA) Screen 2014 Well Visit 65+ 2014 Covid-19 Vaccine (3 - 2023-2 5 season) 2024 07/20/2020, 06/22/2020 Influenza Vaccine (#1) 2024 1, 02/24/2020, 03/31/2016, Additional history exists DTaP/Tdap/Td Vaccine (2 - Td or Tdap) 08/18/2029 08/18/2019 Procedures Procedure Name Priority Date/Time Associated Diagnosis Comments SURGICAL PATHOLOGY Routine 09/03/2024 12 :00 AM CDT Neoplasm of uncertain behavior of skin from Last 3 Months Results * Surgical pathology (09/03/2024 12:00 AM CDT) Tissue (Skin, excision) 09/03/2024 09/03/2024 1:42 PM CDT [facility] - 09/08/2024 12:59 PM CDT EPIC results best viewed via link to PDF [facility] [address], [place] [address] [email or web address] Note to Patients: This report may contain [...] Ernst M.D. Dermatology ([facility]), [address] [place] [address], DERMATOPATHOLOGY REPORT RESULTS DIAGNOSIS: SKIN, RIGHT PROXIMAL FOREARM, EXCISION: - RESIDUAL ATYPICAL INTRAEPIDERMAL MELANOCYTIC PROLIFERATION - SCAR FROM A PREVIOUS PROCEDURE Note: The lesion extends to within a fraction of a millimeter of one lateral margin of the sections examined. The prior biopsy specimen ([id number]) that was processed and diagnosed at an [...] ICD-9 A; ZSD.1387 ZSD.135 Clerical Data A; 62350, 41800-DY The characteristics of special, immunohistochemical, and immunofluorescence stains and in-situ hybridization tests performed by the [facility] were deemed acceptable in ongoing cloth tester quality measures and in compliance with regulations drawn from the Clinical Laboratory Improvement Act ws5348 (CLIA '88). Control reactions for all stains performed were deemed adequate and appropriate by a pathologist prior to evaluation of patient tissue. Some diagnoses were rendered with the assistance of laboratory-developed tests utilizing analyte-specific reagents; the performance characteristic of these tests were determined by [facility] and are not cleared or approved by the [place] Food an Drug administration. Laboratory developed test may only be performed in a facility that is certified by the [facility] as a high-complexity laboratory under CLIA '88. These tests are used for clinical purposes and are not investigational. Helga Ernst MD LAB PATHOLOGY ORDERABLE S Final Result [facility] [address] [place] [id number] from Last 3 Months Insurance MEDICARE [facility] MEDICARE SUPPLEMENT Care Teams Chlorine Cells Operator Relationship Specialty Start Date End Date Fred Hernandez MD [address] [place] [address] PCP - General 10/09/16
[2024-09-17 09:55] LABS: Basophils Absolute Auto 0.1 K/mm3 (0.0-0.1); Basophils Percent Auto 0.9 % (0.2-1.2); Eosinophils Absolute Auto 0.3 K/mm3 (0-0.3); Eosinophils Percent Auto 4.5 % (0-4.4); Hematocrit 48.2 % (42.0-52.0); Hemoglobin 16.1 g/dL (14.0-18.0); Immature Granulocyte Absolute 0.01 K/mm3 (0.00-0.031); Immature Granulocyte Percent A 0.1 % (0-0.5); Lymphocytes Absolute Auto 1.22 K/mm3 (0.9-3.2); Lymphocytes Percent Auto 17.6 % (18.3-44.2); Mean Corpuscular HGB Conc 33.4 g/dl (32-36); Mean Corpuscular Hemoglobin 30.7 pg (26-34); Mean Platelet Volume 10.9 fl (7.4-10.4); Monocytes Absolute Auto 0.6 K/mm3 (0.1-0.6); Monocytes Percent Auto 9.2 % (2.6-8.5); Neutrophils Absolute Auto 4.7 K/mm3 (1.3-6.7); Neutrophils Percent Auto 67.7 % (45.5-73.1); Platelet Count Result 188 k/mm3 (150-375); Red Blood Count 5.24 M/mm3 (4.6-6.20); Red Cell Distribution Width 12.5 % (11.5-14.5); White Blood Count 6.9 K/mm3 (4.5-10.0)
[2024-09-17 10:07] LABS: Alanine Aminotransferase 48 U/L (6-50); Albumin Level 4.6 g/dL (3.5-5.1); Alkaline Phosphatase 79 U/L (38-126); Anion Gap 10 mmol/L (4-12); Aspartate Amino Transferase 41 U/L (17-59); Blood Urea Nitrogen 19 mg/dL (9-20); Calcium 9.7 mg/dL (8.4-10.2); Carbon Dioxide 26 mmol/L (22-30); Chloride 103 mmol/L (98-107); Cholesterol 132 mg/dL (0-200); Estimated Glomerular Filt Rate > 60; Glucose 93 mg/dL (65-110); HDL Direct 46 mg/dL; Potassium 4.5 mmol/L (3.4-5.0); Sodium 139 mmol/L (137-145); Triglycerides 92 mg/dL (<150)
[2024-09-17 10:18] LABS: LDL Cholesterol Direct 58 mg/dL
[2024-09-17 10:45] LABS: Hemoglobin A1C 5.7 % (<5.7)
== END 2024-09-17 08:27 | disposition home or self-care (01) ==
PROVIDERS: PCP Internal Medicine; Visit Provider Internal Medicine
DX: N52.9 Male erectile dysfunction, unspecified (principal); E78.5 Hyperlipidemia, unspecified; Z79.899 Other long term (current) drug therapy; Z13.1 Encounter for screening for diabetes mellitus; Z13.29 Encounter for screening for other suspected endocrine disorder
CPT/HCPCS: 36415; 80053; 80061; 83036; 84439; 84443; 85025

== ENCOUNTER 2025-03-07 09:23 | Outpatient (CLI) | payer MEDICARE, SELFPAY ==
--- NOTE | ~2025-03-07 | XR_ITS ---
XR cervical spine 4-5V INDICATION: Carotid sinus syncope TECHNIQUE: 5 views of the cervical spine. FINDINGS: Bones appear osteopenic. Dental space is within normal limits. No prevertebral soft tissue swelling. Grade 1 anterolisthesis of C5 on C6 which is stable with extension and flexion. No compression fracture in the cervical spine. Lateral dental intervals are within normal limits. Mild to moderate degenerative change throughout the cervical facet joints and uncovertebral joints. The C7 vertebral body was not fully visualized in the lateral images provided. IMPRESSION: 1. No compression fracture in the cervical spine. 2.Grade 1 anterolisthesis of C5 on C6 which is stable with extension and flexion. 3. Guaj-tj-khkbrmdc degenerative change scattered throughout the cervical facet joints and uncovertebral joints. If symptoms persist or worsen, consider an MRI of the cervical spine for further assessment. Reviewed, dictated and finalized at location Q. IMPRESSION: 1. No compression fracture in the cervical spine. 2.Grade 1 anterolisthesis of C5 on C6 which is stable with extension and flexio n. 3. Hyoe-ej-jazuymyj degenerative change scattered throughout the cervical facet joints and uncovertebral joints. If symptoms persist or worsen, consider an MRI of the cervical spine for furthe r assessment.
--- OUTSIDE RECORDS SUMMARY | 2025-03-07 10:19 | XMS_ITS | Clinical Summary ---
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
== END 2025-03-07 09:24 | disposition home or self-care (01) ==
PROVIDERS: PCP Internal Medicine; Visit Provider Internal Medicine
DX: G90.01 Carotid sinus syncope (principal); M50.30 Other cervical disc degeneration, unspecified cervical region
CPT/HCPCS: 72050

== ENCOUNTER 2025-05-16 12:58 | Outpatient (CLI) | payer MEDICARE, SELFPAY ==
--- NOTE | ~2025-05-16 | US_ITS ---
EXAMINATION: US soft tissue head and neck DATE: 05/16/2025 13:58 INDICATION: Numbness at the left side of the neck. Localized swelling, mass and lump at the left neck. TECHNIQUE: Multiple grayscale and Doppler ultrasound images of the region of concern at the left neck were obtained. COMPARISON: None FINDINGS: Normal appearance to the subcutaneous fat and underlying musculature at the region of concern. No pathologically enlarged lymphadenopathy or other abnormal masses or fluid collections identified. IMPRESSION: 1. Normal study. No pathologically enlarged lymphadenopathy or other abnormal masses or fluid collections at the left neck. Reviewed, dictated and finalized at location A. STRY BIOLOGY SPECIALIST IMPRESSION: 1. Normal study. No pathologically enlarged lymphadenopathy or other abnormal m asses or fluid collections at the left neck.
--- NOTE | ~2025-05-16 | US_ITS ---
EXAMINATION: US carotid duplex BI DATE: 05/16/2025 13:58 INDICATION: Carotid sinus syncope TECHNIQUE: Grayscale, color Doppler, and pulsed Doppler images of the cervical carotid arteries were obtained. The degree of vessel stenosis is placed in one of the following categories: normal, <50%, 50-69%, >=70% but less than near- occlusion, near-occlusion, or total occlusion. Note that percent stenosis relative to normal distal artery lumen diameter is indirectly measured from velocity measurements as described by Esteban, et al. Radiology 2003; 229:340-346. COMPARISON: None. FINDINGS: RIGHT: The right common carotid artery (CCA) peak systolic velocity (PSV) is 103 cm/s. The right internal carotid artery (ICA) PSV is 42 cm/s. The right ICA end- diastolic velocity (EDV) is 10 cm/s. The right ICA/CCA PSV ratio is 0.6. Grayscale and color Doppler images yield an estimate of <50% diameter reduction from plaque in the ICA. The external carotid artery (ECA) PSV is 71 cm/s. There is antegrade flow in the right vertebral artery. LEFT: The left CCA PSV is 124 cm/s. The left ICA PSV is 50 cm/s. The left ICA EDV is 16 cm/s. The left ICA/CCA PSV ratio is 0.5. Grayscale and color Doppler images yield an estimate of <50% diameter reduction from plaque in the ICA. The ECA PSV is 69 cm/s. There is antegrade flow in the left vertebral artery. IMPRESSION: 1. <50% stenosis from minimal plaque in the right internal carotid artery. 2. <50% stenosis from minimal plaque in the left internal carotid artery. Reviewed, dictated and finalized at location A. BUFFER
--- OUTSIDE RECORDS SUMMARY | 2025-05-16 15:03 | XMS_ITS | Clinical Summary ---
Author Organization [facility] Address [address] [place] [address] Care Team Providers Care Wirer Helper Name Role Phone Junaid Brennan MD Unavailable [phone] Vincenzo Gomez MD Primary Care Provider [phone] Ry COY MD, Frank Unavailable [phone] Source Comments [facility],non-owned Affiliates and Associated Physician Practices is amultiple site organization consisting of ambulatory clinics and hospital sitesin [place], [place], [place] and [place]. This disclosure is being madepursuant to the Care Everywhere program and may not contain all information available regarding this patient. Last updated 18.[facility] Allergies No known active allergies Medications * Be aware that medications may not be up to date on this document. Alwaysverify current medications with the patient. ALPRAZolam (XANAX) 1 MG tablet Take 1 Tab by mouth 3 times daily as needed For Anxiety 5 6 Active atorvastatin (LIPITOR) 40 MG tablet once daily 0 8 Active lansoprazole (PREVACID) 30 MG capsule Take 30 mg by mouth daily before breakfast Active HYDROcodone-junie taminophen (NORCO) 10-325 MG tablet Take 0.5-1 tablets by mouth every 6 hours as needed 28 tablet 9 Active Additional Information Patient not taking.Reported on 07/02/2019 celecoxib (CELEBREX) 200 MG capsule Take 1 capsule by mouth 2 times daily 60 capsule 9 Active Additional Information Patient not taking.Reported on 07/02/2019 sildenafil (REVATIO) 20 MG tablet Take 20 mg by mouth once daily 9 Active Active Problems Problem Noted Date Diagnosed Date Arthritis of knee 05/17/2019 Resolved Problems Problem Noted Date Diagnosed Date Resolved Date Primary osteoarthritis of right hip 10/20/2018 10/21/2018 Primary osteoarthritis of left knee 09/18/2018 10/21/2018 Right hip pain 09/04/2018 10/21/2018 Primary osteoarthritis of both knees 05/10/2016 10/21/2018 Immunizations Immunization Administration Dates Next Due INFLUENZA VACCINE 03/22/2016 Social History Tobacco Use Types Packs/Day Years Used Date Smoking Tobacco: Never Smokeless Tobacco: Never Alcohol Use Standard Drinks/Week Comments Yes 0 (1 standard drink = 0.6 oz pur e alcohol) SOCIAL Sex and Gender Information Value Date Recorded Sex Assigned at Not on file Legal Sex Male 3:30 PM UNIT AIDE Gender Identity Not on file Sexual Orientation Not on file Last Filed Vital Signs Vital Sign Reading Time Taken Comments Blood Pressure 122/75 05/19/2019 8:20 AM UNIT AIDE Pulse 87 05/19/2019 8:20 AM UNIT AIDE Temperature 36.4 C (97.5 F) 05/19/2019 8:20 AM UNIT AIDE Respiratory Rate 16 05/19/2019 8:20 AM UNIT AIDE Oxygen Saturation 95% 05/19/2019 8:20 AM UNIT AIDE Inhaled Oxygen Concentration - - Weight 101.8 kg (224 lb 6.4 oz) 05/17/2019 8:46 AM UNIT AIDE Height 190.5 cm (6' 3) 05/17/2019 8:46 AM UNIT AIDE Body Mass Index 28.05 05/17/2019 8:46 AM UNIT AIDE Plan of Treatment Health Maintenance Due Date Last Done Comments COLOGUARD (AGES 45-75) - COL ON CA SCREENING 1950 COLON MONITORING 1950 COLONOSCOPY - COLON CA SCREENING 1950 CT COLONOGRAPHY - COLON CA SCREENING 1950 Colorectal Cancer Screening 1950 FIT - COLON CA SCREENING 1950 FLEX SIG - COLON CA SCREENING 1950 HEPATITIS C SCREENING 06/05/1967 DTAP/TDAP/TD VACCINES (1 - Tdap) 1968 PNEUMOCOCCAL VACCINE 50+ (1 of 1 - PCV) 1999 ZOSTER VACCINE (1 of 2) 1999 SCREENING FOR DIABETES 04/16/2022 9, 09/11/2018, 05/24/2016 Respiratory Syncytial Virus (RSV) Vaccine Pt: or over 60 yrs (1 - 1-dose 75+ series) 2024 DEPRESSION SCREENING 06/23/2024 COVID-19 VACCINE (1 - 2024-2 6 season) 2025 INFLUENZA VACCINE (#1) 2025 03/22/2016 HEPATITIS B VACCINE Aged Out No longe [...] this topic Medical Devices Implanted Type Area Fish Worm Grower Device Identifier Shelf Expiration Date Model / Serial / Lot Cmnt Bone Co Hv 40gm Implanted:Qty: 1 on 06/21/2016 by Junaid Brennan MD at [facility] Right: Knee [employer] 10/20/2017 [id number] / / [id number] Tray Tib 79mm Kn Cocr I Beam Implanted:Qty: 1 on 06/21/2016 by Junaid Brennan MD at [facility] Right: Knee [employer] 05/14/2026 [id number] / / [id number] Cmpnt Fem Kn Rt Cr Cmnt Prm Vngrd Intlk Implanted:Qty: 1 on 06/21/2016 by Junaid Brennan MD at [facility] Right: Knee [employer] 04/29/2026 [id number] / / [id number] Cmpnt Ptlr 31mm 1 Pg Wire Ascnt Arcm Kn Implanted:Qty: 1 on 06/21/2016 by Junaid Brennan MD at [facility] Right: Knee [employer] 05/23/[id number] / / [id number] Brng 67izz29ag Vngrd Arcm Kn Ant Stab Implanted:Qty: 1 on 06/21/2016 by Junaid Brennan MD at [facility] Right: Knee [employer] 06/21/2017 [id number] / / [id number] Acetabular Shell Implanted:Qty: 1 on 10/20/2018 by Michael Raza IV, MD at [facility] Right: Hip 04/24/2027 [id number] / / [id number] Acetabular Liner Implanted:Qty: 1 on 10/20/2018 by Michael Raza IV, MD at [facility] Right: Hip 07/15/2023 [id number] / / [id number] Femoral Stem 15mm Implanted:Qty: 1 on 10/20/2018 by Michael Raza IV, MD at [facility] Right: Hip 02/03/2028 [id number] / / [id number] Femoral Head +9 Implanted:Qty: 1 on 10/20/2018 by Michael Raza IV, MD at [facility] Right: Hip 06/11/2028 [id number] / / [id number] Cmnt Bone Djo Srg Cblt 40gm Hvisc Strl Implanted:Qty: 1 on 05/17/2019 by Junaid Brennan MD at [facility] Left: Knee [employer] 08/13/2020 600-15-000 / / [id number] Cmnt Bone Djo Srg Cblt 40gm Hvisc Strl Implanted:Qty: 1 on 05/17/2019 by Junaid Brennan MD at [facility] Left: Knee [employer] 08/13/2020 600-15-000 / / [id number] Tray Tib 83mm Kn Cocr I Beam Implanted:Qty: 1 on 05/17/2019 by Junaid Brennan MD at [facility] Left: Knee [employer] 04/21/2029 [id number] / / [id number] Cmpnt Ptlr 31mm 1 Pg Wire Ascnt Arcm Kn Implanted:Qty: 1 on 05/17/2019 by Junaid Brennan MD at [facility] Left: Knee [employer] 09/25/2022 [id number] / / [id number] Cmpnt Fem Kn Lt Cr Cmnt Prm Vngrd Intlk Implanted:Qty: 1 on 05/17/2019 by Junaid Brennan MD at [facility] Left: Knee [employer] 02/09/2029 [id number] / / [id number] Brng 87iko18mn Vngrd Arcm Kn Ant Stab Implanted:Qty: 1 on 05/17/2019 by Junaid Brennan MD at [facility] Left: Knee [employer] 09/17/2023 [id number] / / [id number] Explanted Type Area Fish Worm Grower Device Identifier Shelf Expiration Date Model / Serial / Lot Pin Fx 22.9cm 4mm Stnm Thrd Ss 1 End Explanted:Qty: 1 on 10/20/2018 at [facility] [employer] [id number] / / Procedures Procedure Name Priority [...] - 16 mmol/L 04/16/2019 1:23 PM CDT [facility] BUN 19 8.4 - 25.7 mg/dL 04/16/2019 1:23 PM CDT [facility] Creatinine 0.93 0.72 - 1.25 mg/dL 04/16/2019 1:23 PM CDT [facility] Alkaline Phosphatase 85 40 - 150 U/L 04/16/2019 1:23 PM CDT [facility] ALT 18 0 - 61 U/L 04/16/2019 1:23 PM CDT [facility] AST 21 5 - 34 U/L 04/16/2019 1:23 PM CDT [facility] Protein Total 6.9 6.4 - 8.3 gm/dL 04/16/2019 1:23 PM CDT [facility] Albumin 4.4 3.2 - 4.6 gm/dL 04/16/2019 1:23 PM CDT [facility] Bilirubin Total 1.0 0.2 - 1.2 mg/dL 04/16/2019 1:23 PM CDT [facility] eGFR by MDRD >60 >60 mL/min/1.7 3m2 04/16/2019 1:23 PM CDT [facility] eGFR by MDRD >60 >60 mL/min/1.7 3m2 04/16/2019 1:23 PM CDT [facility] Blood BLOOD SPECIMEN / Unknown Venipuncture / Unknown 04/16/2019 12:56 PM CDT 04/16/2019 1:05 PM CDT Diana Hall WOOD COATER-DIVERSIONAL THERAPIST'S ASSISTANT LAB - CHEMISTRY OR DERABLES Final Result [facility] [address] [place] [address] from Last 3 Months or Most Recently Relevant to Health Maintenance Insurance MEDICARE [employer] Advance Directives * Full Code (Latest Code Status on File) Date Activated Date Inactivated Comments 05/17/2019 1:32 PM 05/19/2019 4:44 PM * Full Code Date Activated Date Inactivated Comments 10/20/2018 10:48 AM 10/21/2018 3:51 PM * Full Code Date Activated Date Inactivated Comments 06/21/2016 1:38 PM 06/24/2016 1:17 PM Care Teams Wirer Helper Relationship Specialty [place] [id number] [address] [place] [id number] PCP - General Internal Medicine 05/24/16 [place] [id number] [address] [place] [address] Orthopedic Surgery 07/24/12 [place] [id number] [address] [place] [address] [id number] Orthopedic Surgery 09/04/18
--- OUTSIDE RECORDS SUMMARY | 2025-05-16 15:03 | XMS_ITS | Clinical Summary ---
Author Organization [facility] Address [address] [place] [phone] Care Team Providers Care Industrial Electrician Journeyman Name Role Phone Fred Hernandez MD Primary Care Provider [phone] Allergies No known active allergies Medications ALPRAZolam [...] Encounters Date Type Department Care Team Description 03/23/2025 Results Follow-Up [facility] [address] [place] [phone] Helga Ernst MD Surgical pathology 03/21/2025 Orders Only [facility] Pathology Outreach [address] [place] [address] Helga Ernst MD Melanoma in situ of back (HCC) 03/18/2025 12:30 PM CDT Procedure visit [facility] D[facility]at[facility] [address] [place] [address] Helga Ernst MD Melanoma in situ of back (HCC) (Primary Dx) from Last 3 Months Medical History Medical [...] on file 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 Gender Identity Not on file Sexual Orientation Not on file Last Filed Vital Signs Vital Sign Reading Time Taken Comments Blood Pressure 129/80 03/18/2025 12:25 PM CDT Pulse 78 03/18/2025 12:25 PM CDT Temperature - - Respiratory Rate - - Oxygen Saturation 98% 03/18/2025 12:25 PM CDT Inhaled Oxygen Concentration - - Weight - - Height - - Body Mass Index - - Plan of Treatment Not on file Procedures Procedure Name Priority Date/Time Associated Diagnosis Comments SURGICAL PATHOLOGY Routine 03/18/2025 12 :00 AM CDT Melanoma in situ of back (HCC) from Last 3 Months Results * Surgical pathology (03/18/2025 12:00 AM CDT) Tissue (Skin, excision) 03/18/2025 03/21/2025 6:04 AM CDT [facility] - 03/23/2025 11:13 AM CDT [facility] results best viewed via link to PDF [facility], [address], [place] [address] [email or web address] Note to Patients: This report may contain [...] : 1950 (Age: 74) Specimen Information: COLLECTED: 03/18/2025 RECEIVED: 03/21/2025 REPORTED: 03/23/2025 Submitting Physician Information: Liang Ernst M.D. Dermatology ([facility]), [address] [place] [address], [address] [place] [address], DERMATOPATHOLOGY REPORT RESULTS DIAGNOSIS: SKIN, LEFT UPPER BACK, EXCISION: SCAR FROM A PREVIOUS PROCEDURE Note: There is no evidence of a neoplasm in these sections. cr/ajrr By this signature, I attest that the above diagnosis is based upon my personal examination of the slides(and/or other material indicated in the diagnosis). Venu Cunningham M.D. Report Electronically Reviewed and Signed Out By Venu Cunningham M.D. 03/23/2025 11:13:25 CLINICAL INFORMATION R/O MIS SPECIMEN DATA MICROSCOPIC DESCRIPTION: There is a proliferation of fibroblasts aligned parallel to the skin surface interposed among linearly arranged, thickened collagen bundles and small blood vessels. (L90.5) GROSS DESCRIPTION: Received in a formalin-containing bottle is an elliptical piece of pale hoang, finely scaling, slightly wrinkled skin and adipose tissue measuring 3.6 by 1.5 by 0.8 cm. An orienting notch is present and the notch is placed in the 12:00 position. The 12:00-6:00 surgical margin is inked black. The 6:00-12:00 surgical margin is inked blue. The specimen bears a pale hoang, scaly, centrally located, poorly circumscribed, flat area measuring 0.5 by 0.5 cm. The specimen is sectioned into 11 pieces and submitted in 7 cassettes. The tip with the notch is submitted in the first cassette. The opposite tip is submitted in the second cassette. The tips are tagged orange for orienting purposes. Due to shrinkage, measurements may be different than those at time of procedure. ag/mat ICD-9 A; ZSD.1387 Clerical Data A; 53579 The characteristics of special, immunohistochemical, and immunofluorescence stains and in-situ hybridization tests performed by the [facility] were deemed acceptable in ongoing quality intern measures and in compliance with regulations drawn from the Clinical Laboratory Improvement Act io3111 (CLIA '88). Control reactions for all stains performed were deemed adequate and appropriate by a pathologist prior to evaluation of patient tissue. Some diagnoses were rendered with the assistance of laboratory-developed tests utilizing analyte-specific reagents; the performance characteristic of these tests were determined by [facility] and are not cleared or approved by the [place] Food an Drug administration. Laboratory developed test may only be performed in a facility that is certified by the [facility] as a high-complexity laboratory under CLIA '88. These tests are used for clinical purposes and are not investigational. Helga Ernst MD LAB PATHOLOGY ORDERABLE S Final Result [facility] [address] [place] [id number] from Last 3 Months Insurance MEDICARE [facility] MEDICARE SUPPLEMENT Care Teams Industrial Electrician Journeyman Relationship Specialty Start Date End Date Fred Hernandez MD [address] [place] [address] PCP - General 10/09/16
--- OUTSIDE RECORDS SUMMARY | 2025-05-16 15:03 | XMS_ITS | Encounter Summary ---
Author Organization [facility] Address [address] [place] [address] Phone Care Team Providers Care Home Appliances Mechanic Name Role Phone Fred Hernandez MD Primary Care Provider [phone] Encounter Details Date Type Department Care Team (Late st Contact Info) Description 03/23/2025 Results Follow-Up [facility] Medicine Dermatology [address] [place] [phone] [place], Helga Aguillon MD [address] [place] [address] [address] [place] [address] Surgical pathology Social History Tobacco Use Types Packs/Day Years Used Date Smoking Tobacco: Never Smokeless Tobacco: Never Sex and Gender Information Value Date Recorded Sex Assigned at Not on file 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
== END 2025-05-16 12:59 | disposition home or self-care (01) ==
PROVIDERS: PCP Internal Medicine; Visit Provider Internal Medicine
DX: G90.01 Carotid sinus syncope (principal); R22.1 Localized swelling, mass and lump, neck
CPT/HCPCS: 76536; 93880